=== PATIENT | male | born 1970 | race Caucasian/White ===

== ENCOUNTER 2018-02-03 08:19 | Day surgery (SDC) | payer MEDICARE, OTHER ==
[2018-01-31 10:13] VITALS: BMI 24.2
--- NOTE | 2018-02-02 15:26 | P.GSHP ---
History of Present Illness H&P Date: 02/03/18 CHIEF COMPLAINT: Inguinal hernia, left. HISTORY OF PRESENT ILLNESS: The patient is a 47-year-old male who presents with a history of swelling and pain along the left groin. He has had previous repair. He's noted increased swelling including pain of the area. Now he presents for repair of his inguinal hernia. PAST MEDICAL HISTORY: Please see list. PAST SURGICAL HISTORY: Please see list. MEDICATIONS: Please see list. ALLERGIES: Please see list. SOCIAL HISTORY: No illicit drug use FAMILY HISTORY: No reports of Crohn disease or ulcerative colitis. REVIEW OF ORGAN SYSTEMS: CONSTITUTIONAL: No reports of fevers or chills. No reports of weight loss despite prior attempts. GI: Denies any blood in stools or constipation. PHYSICAL EXAM: VITAL SIGNS: Stable GENERAL: Well-developed pleasant male in no acute distress. HEENT: No scleral icterus. Extraocular movements grossly intact. Moist buccal mucosa. NECK: Supple without lymphadenopathy. CHEST: Unlabored respirations. Equal bilateral excursions. CARDIOVASCULAR: Regular rate and rhythm. Distal 2+ pulses. ABDOMEN: Soft, nondistended. No peritoneal signs. Palpable defect of the left groin. MUSCULOSKELETAL: No clubbing, cyanosis, or edema. ASSESSMENT: 1. Inguinal hernia, left and symptomatic, recurrent PLAN: 1. Recommend proceeding with a robotic inguinal repair with mesh with possible bilateral approach. 2. Benefits and risks of surgical intervention was discussed including possibility of open technique. 3. DVT prophylaxis. 4. Antibiotic prophylaxis. Past Medical History Past Medical History: Hyperlipidemia, Osteoarthritis (OA), Sleep Apnea/CPAP/ BIPAP Additional Past Medical History / Comment(s): hx migraines, no cpap used- corrected surgically, umbilical and inguinal herna, History of Any Multi-Drug Resistant Organisms: None Reported Past Surgical History: Adenoidectomy, Cholecystectomy, Hernia Repair, Orthopedic Surgery, Tonsillectomy Additional Past Surgical History / Comment(s): surgery for sleep apnea, ACL x 3 left knee, ACL x 2 rt knee, inguinal hernia surgeries x 7, sinus/deviated septum surgery Past Anesthesia/Blood Transfusion Reactions: No Reported Reaction Smoking Status: Current every day smoker - Past Family History Mother Family Medical History: Cancer Medications and Allergies Home Medications Medication Instructions Recorded Confirmed Type Multivitamins, Thera [Multivitamin 1 tab PO DAILY 01/31/18 01/31/18 History (formulary)] Allergies Allergy/AdvReac Type Severity Reaction Status Date / Time aspirin Allergy Swelling Verified 01/31/18 10:05 of throat and SOB codeine Allergy Dyspnea, Verified 01/31/18 10:05 whole body swells pregabalin [From Lyrica] Allergy Rash/Hives Verified 01/31/18 10:05
[~2018-02-03 08:19] MED LIST: ACETAMINOPHEN IV (For NPO) 1,000 MG in EMPTY BAG 1 BAG IVPB ONE; DEXAMETHASONE SOD PHOSPHATE 10 MG/ML 1 ML VIAL IV ONE; HEPARIN SODIUM,PORCINE 5,000 UNIT/ML 1 ML VIAL SQ ONE; MIDAZOLAM 2 MG/2 ML VIAL IV PRN; MORPHINE SULF 5MG/10ML VL IV PRN; ONDANSETRON 4 MG/2 ML VIAL IVP ONE; ceFAZolin IN SWFI 2 GM/20 ML SYRINGE IVP ONE
[2018-02-03] MEDS: LACTATED RINGERS 1,000 ML IV SCH (08:56)
[2018-02-03] MEDS ORDERED: LIDOCAINE 1% INJ 10MG/ML (20 ML MDV) ONE (09:59)
[2018-02-03] MEDS ORDERED: fentaNYL (PF) 50 MCG/ML 2 ML AMP ONE (09:59)
[2018-02-03] MEDS ORDERED: GLYCOPYRROLATE 0.2 MG/ML 2 ML VIAL ONE (09:59)
[2018-02-03] MEDS ORDERED: MIDAZOLAM 2 MG/2 ML VIAL ONE (09:59)
[2018-02-03] MEDS ORDERED: PROPOFOL 10 MG/ML 20 ML VIAL IV ONE (09:59)
[2018-02-03] MEDS ORDERED: ROCURONIUM BROMIDE 10 MG/ML 10 ML VIAL IV ONE (09:59)
[2018-02-03] MEDS ORDERED: SUCCINYLCHOLINE CHLORIDE VIAL 200 MG/10 ML VIAL IV ONE (09:59)
[2018-02-03] MEDS ORDERED: MORPHINE SULFATE 10 MG/ML SYRINGE ONE (09:59)
[2018-02-03] MEDS ORDERED: NEOSTIGMINE 1 MG/ML 10 ML VIAL ONE (09:59)
[2018-02-03] MEDS ORDERED: BUPIVACAINE (PF) 0.25% 30 ML VIAL SQ ONE (10:20)
[2018-02-03 12:03] VITALS: TEMP 98.5
--- NOTE | 2018-02-03 12:07 | P.OP ---
Date of Procedure: 02/03/18 Description of Procedure: SURGEON: HERMANN SABA MD ROLLER BEARING INSPECTOR: 1. DENIA MONTOYA 2. CLAIRE SIFUENTES PREOPERATIVE DIAGNOSES: 1. Recurrent left inguinal hernia. 2. History of bilateral inguinal hernia repair. 3. Umbilical hernia 4. History of tobacco use 5. Left groin pain POSTOPERATIVE DIAGNOSES: 1. Recurrent left inguinal hernia, incarcerated, direct, 3 cm 2. History of bilateral inguinal hernia repair. 3. Umbilical hernia, initial, incarcerated, 2 cm 4. History of tobacco use 7. Incarcerated left inguinal lipoma. 8. Foreign body left groin 9. Left groin pain OPERATION: 1. Robotic-assisted da Dimas Xi laparoscopic recurrent incarcerated left inguinal hernia repair with mesh, 11.[address] 2. Robotic-assisted da Dimas Xi laparoscopic excision of foreign body, left inguinal canal, previous mesh 3. Robotic-assisted da Dimas Xi laparoscopic excision of incarcerated left inguinal lipoma. 4. Robotic-assisted da Dimas Xi laparoscopic repair of initial incarcerated umbilical hernia, 2 cm without mesh ANESTHESIA: General with local anesthetic ESTIMATED BLOOD LOSS: 5 mL. SPECIMENS REMOVED: 1. Incarcerated left inguinal lipoma. 2. Foreign body left groin 3. Incarcerated umbilical COMPLICATIONS: None. INDICATIONS: The patient is a 47-year-old gentleman who presents with history of left groin swelling. He has a personal history of previous bilateral inguinal hernia repairs. He also has history of umbilcal hernia. Now presents for definitive surgical intervention. Laparoscopic versus open and robotic approaches were discussed. Benefits and risks including bleeding, infection, injury to the vas deferens as well as sterility and chronic groin pain were reviewed. Placement of mesh was also described. Informed consent was obtained. DESCRIPTION: In the preoperative area, the patient was marked with indelible marker along the inguinal hernia. The patient was brought to the operating room and initially laid in supine position. The abdomen had been prepped and draped in standard sterile fashion. Ioban draping was also placed. Prior to incision, a timeout protocol was confirmed with surgical team regarding patient's name including procedures to be performed and location along the left groin. Initial positioning for the robotic assisted ports were selected whereby 20 cm superior to the target anatomy, 0 degree 5 mm laparoscopic trocar entry was performed at the left upper quadrant. The abdomen was insufflated to 15 mmHg which he had tolerated well. Diagnostic laparoscopy demonstrated direct left groin and no recurrence along the right side. Next, along the epigastrium, 12 mm extended length trocar was placed. An 8-mm robotic trocar was placed under direct visualization at the right upper quadrant. The 5 mm port was exchanged for an 8 mm trocar. All trocars were positioned between 10 to 12-cm apart from each other. The [employer] robot was primed, draped, prepared for docking in between the legs of the patient. I then went to the [employer] SI console. The assistant import manager was at bedside for exchange of the robot arms and equipment. No recurrent hernia was identified along the right groin. At the left groin, 3 cm direct inguinal hernia was identified. The hernia sac was evaginated whereby the peritoneum was scored using Endo scissors with cautery. Foreign body consistent with previous PerFix plug mesh was found and resected. Once completely reduced into the abdominal cavity, the peritoneal sac of the hernia was stripped and a lipoma of the left groin was reduced. The sac was resected and then passed off for further pathological analysis. The size of the hernia defect was 3 cm with intraoperative films obtained. Using a 2-0 VLOC, the peritoneal defect of the left inguinal hernia site was closed with running suture. The defect was found to be completely closed with complete reduction of the left nguinal hernia was confirmed. As an onlay, an 11.[address] mesh by [employer] was initially cut in half and entered into the abdominal cavity via the 12 mm trocar. The mesh was tacked to the pelvis using 2-0 VLOC x 9-inch length sutures. Attention was brought to the umbilicus where an incarcerated incisional hernia was identified also containing omentum. The incarcerated contents was reduced as the peritoneal fat was cleaned from the abdominal wall. Next, hemostasis was checked with cautery. The hernia defect of 2-cm was oversewn using #1 Stratafix with imbrication 3. A final endoscopic imaging was obtained. The robot was undocked from the patient's bedside. I then rescrubbed into the case. The peritoneal defect corresponding to the 12 mm port was inspected. The fascial defect was reapproximated using 0-Vicryl and a Issa Hari. Insufflation was released from the abdominal cavity and all instruments were removed from the abdominal cavity. The rest of incisions were reapproximated using 4-0 Monocryl in a running subcuticular fashion. Local anesthetic was placed along the incision including for a left groin block. Incisions were cleansed using dilute hydrogen peroxide. Dermabond was applied to the skin. At the end of the procedure, the needle, sponge and instrument counts had been verified correct by the nursing surgical services director. The patient had tolerated the procedure well and was taken to the postanesthesia care unit in stable condition. FINDINGS: 1. Recurrent left inguinal hernia, direct, Nyhus type IV, 3 cm 2. No recurrent hernia on the right groin 3. Incarcerated left inguinal lipoma 4. Removal of previous mesh left groin foreign body 5. Incarcerated initial umbilical hernia, 2cm, repair without mesh Plan - Discharge Summary New Discharge Prescriptions: No Action Multivitamins, Thera [Multivitamin (formulary)] 1 tab PO DAILY Discharge Medication List Multivitamins, Thera [Multivitamin (formulary)] 1 tab PO DAILY 01/31/18 [History ]
[2018-02-03] MEDS ORDERED: TAMSULOSIN 0.4 MG CAP.ER.24H PO STA (12:10)
[2018-02-03] MEDS: fentaNYL (PF) 50 MCG/ML 2 ML AMP IVP ONE ×2 (12:26→12:31)
[2018-02-03] MEDS ORDERED: MEPERIDINE 50 MG/ML SYRINGE IVP ONE ×2 (12:43→13:18)
[2018-02-03 13:43] VITALS: RESP 18
[2018-02-03] MEDS ORDERED: HYDROcodone/APAP 5-325MG 1 EACH TAB PO ONE (14:03)
[2018-02-03 14:42] VITALS: BP 148/80; PULSE 74
== END 2018-02-03 15:08 | disposition home or self-care (01) ==
LOC: OR 08:19
PROVIDERS: ATTEND Surgery Plastic and Reconstructive Surgery
DX: K40.31 Unilateral inguinal hernia, with obstruction, without gangrene, recurrent (principal); K42.0 Umbilical hernia with obstruction, without gangrene; D17.79 Benign lipomatous neoplasm of other sites; T85.848A Pain due to other internal prosthetic devices, implants and grafts, initial encounter; E78.5 Hyperlipidemia, unspecified; M19.90 Unspecified osteoarthritis, unspecified site; G47.33 Obstructive sleep apnea (adult) (pediatric); F17.200 Nicotine dependence, unspecified, uncomplicated; Z88.6 Allergy status to analgesic agent; Z88.5 Allergy status to narcotic agent; Z88.8 Allergy status to other drugs, medicaments and biological substances
CPT/HCPCS: 49651; 49653; C1781; J2250; J0330; J1644; J1100; J2710; J2175; J2270; J2405; J2001; J3010; J0131; J2704; J0690; 88302; 88304

== ENCOUNTER 2019-02-26 10:01 | Day surgery (SDC) | payer MEDICARE, OTHER ==
[2019-02-17 10:26] VITALS: BMI 24.6
--- NOTE | 2019-02-25 18:29 | P.GSHP ---
History of Present Illness H&P Date: 02/26/19 CHIEF COMPLAINT: Ventral hernia HISTORY OF PRESENT ILLNESS: The patient is a 48-year-old male who presents with a history of swelling and pain along the abdomen from a hernia. Now he presents for surgical intervention. PAST MEDICAL HISTORY: Please see list. PAST SURGICAL HISTORY: Please see list. MEDICATIONS: Please see list. ALLERGIES: Please see list. SOCIAL HISTORY: No illicit drug use FAMILY HISTORY: No reports of Crohn disease or ulcerative colitis. REVIEW OF ORGAN SYSTEMS: CONSTITUTIONAL: No reports of fevers or chills. No reports of weight loss despite prior attempts. GI: Denies any blood in stools or constipation. PHYSICAL EXAM: VITAL SIGNS: Stable GENERAL: Well-developed pleasant male in no acute distress. HEENT: No scleral icterus. Extraocular movements grossly intact. Moist buccal mucosa. NECK: Supple without lymphadenopathy. CHEST: Unlabored respirations. Equal bilateral excursions. CARDIOVASCULAR: Regular rate and rhythm. Distal 2+ pulses. ABDOMEN: Soft, nondistended. Palpable defect of the abdomen epigastrium. No peritoneal signs. MUSCULOSKELETAL: No clubbing, cyanosis, or edema. ASSESSMENT: 1. Ventral hernia PLAN: 1. Recommend proceeding with robotic ventral hernia repair with mesh. 2. Benefits and risks of surgical intervention was discussed including possibility of open technique. 3. DVT prophylaxis. 4. Antibiotic prophylaxis. Past Medical History Past Medical History: Hyperlipidemia, Osteoarthritis (OA), Sleep Apnea/CPAP/BIPAP Additional Past Medical History / Comment(s): hx migraines, no cpap used- corrected surgically, HERNIA History of Any Multi-Drug Resistant Organisms: None Reported Past Surgical History: Adenoidectomy, Cholecystectomy, Hernia Repair, Orthopedic Surgery, Tonsillectomy Additional Past Surgical History / Comment(s): surgery for sleep apnea, ACL x 3 left knee, ACL x 2 rt knee, inguinal hernia surgeries x 7, sinus/deviated septum surgery Past Anesthesia/Blood Transfusion Reactions: No Reported Reaction Smoking Status: Current every day smoker - Past Family History Mother Family Medical History: Cancer Medications and Allergies Home Medications Medication Instructions Recorded Confirmed Type No Known Home Medications 02/17/19 02/17/19 History Allergies Allergy/AdvReac Type Severity Reaction Status Date / Time aspirin Allergy Swelling Verified 02/17/19 10:19 of throat/SOB pregabalin [From Lyrica] Allergy Rash/Hives Verified 02/17/19 10:19
[~2019-02-26 10:01] MED LIST changes: -ACETAMINOPHEN IV (For NPO) 1,000 MG in EMPTY BAG 1 BAG IVPB ONE; +HYDROmorphone 0.5 MG/0.5 ML SYRINGE IVP PRN; +LACTATED RINGERS 1,000 ML IV SCH; +LIDOCAINE 1% 20 ML VIAL (10MG/ML) FOR IV START INTRADERMA PRN; +MIDAZOLAM (PF) 2 MG/2 ML VIAL IV PRN; -MIDAZOLAM 2 MG/2 ML VIAL IV PRN; -MORPHINE SULF 5MG/10ML VL IV PRN; +SCOPOLAMINE 1.5MG/72HR PATCH TRANSDERM ONE
[2019-02-26] MEDS ORDERED: MIDAZOLAM (PF) 2 MG/2 ML VIAL IV ONE (10:55)
--- NOTE | 2019-02-26 11:18 | P.ONQ ---
Anesthesiology Proc Note - PNB - Peripheral Nerve Block Performed Bilateral Transversus Abdominis Single Time Out Performed: Yes (1058) Procedure Start Time: 10:58 Procedure Stop Time: 11:05 Indication: Acute Post-Operative Pain, Dx/Pain Location (Abdominal Pain), Requested by physician Sedation Type: Sedate with meaningful contact maintained Preparation: Sterile Prep Position: Supine Catheter: None Needle Types: On-Q Needle Size: 100mm (4") Needle Gauge: 21 Technique: Ultrasound Injectate: Other (see comment) (10ml 0.25% ropivacaine with 10ml 2% lidocaine with 1:200,000 epi and 4mg dexamethasone at each side) Blood Aspirated: No Pain Paresthesia on Injection Noted: No Resistance on Injection: Normal Events: Uneventful and Well Tolerated
[2019-02-26] MEDS ORDERED: ALBUTEROL INHALER 60 PUFF/8 GM INHALER INHALATION ONE (13:01)
[2019-02-26] MEDS ORDERED: ROPIVACAINE 5 MG/ML 30 ML VIAL ONE (13:01)
[2019-02-26] MEDS ORDERED: MIDAZOLAM 2 MG/2 ML VIAL ONE (13:01)
[2019-02-26] MEDS ORDERED: fentaNYL (PF) 50 MCG/ML 2 ML AMP ONE (13:01)
[2019-02-26] MEDS ORDERED: GLYCOPYRROLATE 0.2 MG/ML 2 ML VIAL ONE (13:01)
[2019-02-26] MEDS ORDERED: LIDOCAINE 1% INJ 10MG/ML (20 ML MDV) ONE (13:01)
[2019-02-26] MEDS ORDERED: LIDOCAINE 2%-EPI 1:100,000 20 ML VIAL ONE (13:01)
[2019-02-26] MEDS ORDERED: NEOSTIGMINE 1 MG/ML 10 ML VIAL ONE (13:01)
[2019-02-26] MEDS ORDERED: PROPOFOL 10 MG/ML 20 ML VIAL IV ONE (13:01)
[2019-02-26] MEDS ORDERED: ePHEDrine SULFATE/0.9% NACL/PF 50 MG/5 ML SYRINGE IV ONE (13:01)
[2019-02-26] MEDS ORDERED: ROCURONIUM BROMIDE 10 MG/ML 10 ML VIAL IV ONE (13:01)
[2019-02-26] MEDS ORDERED: LACTATED RINGERS 1,000 ML IV ONE ×2 (13:09→13:35)
[2019-02-26] MEDS ORDERED: BUPIVACAINE (PF) 0.5% 30 ML VIAL SQ ONE (13:45)
[2019-02-26] MEDS ORDERED: BUPIVACAINE (PF) 0.75% 10 ML VIAL SQ ONE (13:49)
[2019-02-26 15:02] VITALS: TEMP 98.3
--- NOTE | 2019-02-26 15:12 | P.OP ---
Date of Procedure: 02/26/19 Description of Procedure: SURGEON: HERMANN SABA MD PREOPERATIVE DIAGNOSES: 1. Incisional epigastric ventral hernia 2. History of multiple abdominal wall surgeries 3. Tobacco use disorder 4. Hyperlipidemia 5. Obstructive sleep apnea POSTOPERATIVE DIAGNOSES: 1. Incarcerated initial epigastric incisional hernia, 3 cm 2. History of multiple abdominal wall surgeries 3. Tobacco use disorder 4. Hyperlipidemia 5. Obstructive sleep apnea OPERATION: 1. Robotic-assisted da Dimas Xi laparoscopic repair of initial incarcerated incisional hernia 3-cm with mesh, ventralight ST mesh 11.4 cm ANESTHESIA: General with local ESTIMATED BLOOD LOSS: 5 mL. SPECIMENS: Incarcerated incisional hernia sac, epigastric COMPLICATIONS: None. INDICATIONS: The patient is a 48-year-old male who presents with initial incisional epigastric ventral hernia. Surgical intervention with laparoscopic versus robotic and open techniques were reviewed. Placement of mesh was also reviewed. Benefits and risks were thoroughly described. Informed consent was obtained. DESCRIPTION OF PROCEDURE: The patient was brought into the operating room and laid in supine position. After general induction, the abdomen had been prepped and draped in standard sterile fashion. Ioban draping was also placed. Prior to incision, a timeout protocol was confirmed with surgical team regarding the patient's name including procedures to be performed. The robot was primed prior to the procedure. A field block using local anesthetic was placed along hernia site including the proposed port sites. Initial incision was made with an #11 blade along the left upper quadrant. A 0 degree 5 mm laparoscopic trocar entry was performed and insufflated. An 8 mm port was placed along the right upper quadrant and another at the epigastrium under direct localization. The 5- mm port was exchanged for an 8 mm robotic port. Placements of the ports were 15 cm from the target anatomy and 10 cm apart. The [employer] robot was previously primed, prepped and draped then docked along the right side of the patient. I then sat at the robot [email or web address] console where working arms of the robot including Bovie cautery connected to robotic scissors, vessel sealer, needle fork truck driver, and graspers placed by the licensed loan officer assistant. Diagnostic laparoscopy demonstrated defect along the epigastrium and 2 sites approximately 3 cm in size combined just distal to the falciform ligament. The incarcerated contents was reduced as the peritoneal fat was cleaned from the abdominal wall. Next, hemostasis was checked with cautery. The hernia defect was oversewn using #1 Stratafix with fascial imbrication x 3. Next, ventralight ST mesh 11.4 cm was placed with the rough side towards the abdominal wall along the length of the midline. 2-0 VLOC 9 inch sutures were used to fixate the mesh. Specimen was removed via the left upper quadrant incision A final endoscopic imaging was obtained. All instruments and pneumoperitoneum were evacuated from the abdominal cavity. The da Dimas Xi robot was undocked from the patient. I re-scrubbed into the case for closure of incisions. The incisions were reapproximated using 4-0 Monocryl in an interrupted subcuticular fashion. Liquid glue was applied to the skin after cleansing the skin with normal saline and dilute hydrogen peroxide. An abdominal binder was placed. At the end of the procedure, needle, sponge, and instrument count had been verified correct by surgical elastic knitter. The patient was taken to the postanesthesia care unit in stable condition. FINDINGS: 1. Initial incarcerated epigastric incisional hernia, 3 cm
[2019-02-26 15:56] VITALS: RESP 18
[2019-02-26 16:29] VITALS: BP 128/78; PULSE 78
== END 2019-02-26 16:29 | disposition home or self-care (01) ==
LOC: OR 10:01
PROVIDERS: ATTEND Surgery Plastic and Reconstructive Surgery
DX: K43.0 Incisional hernia with obstruction, without gangrene (principal); E78.5 Hyperlipidemia, unspecified; G47.33 Obstructive sleep apnea (adult) (pediatric); M19.90 Unspecified osteoarthritis, unspecified site; F17.210 Nicotine dependence, cigarettes, uncomplicated; Z80.9 Family history of malignant neoplasm, unspecified; Z79.899 Other long term (current) drug therapy; Z88.6 Allergy status to analgesic agent; Z88.8 Allergy status to other drugs, medicaments and biological substances; Z88.5 Allergy status to narcotic agent
CPT/HCPCS: 49655; S2900; 64488; 88302

== ENCOUNTER → 2022-08-16 | Day surgery (SDC) | payer MEDICARE, OTHER ==
[2022-08-15 08:42] VITALS: BMI 27.1
[~2022-08-16] MED LIST changes: -DEXAMETHASONE SOD PHOSPHATE 10 MG/ML 1 ML VIAL IV ONE; -HEPARIN SODIUM,PORCINE 5,000 UNIT/ML 1 ML VIAL SQ ONE; -HYDROmorphone 0.5 MG/0.5 ML SYRINGE IVP PRN; +LACTATED RINGERS 1,000 ML IV ONE; -LIDOCAINE 1% 20 ML VIAL (10MG/ML) FOR IV START INTRADERMA PRN; +LIDOCAINE 2% INJ 20 MG/ML (2 ML VIAL) ONE; -MIDAZOLAM (PF) 2 MG/2 ML VIAL IV PRN; -ONDANSETRON 4 MG/2 ML VIAL IVP ONE; +PROPOFOL 10 MG/ML 20 ML VIAL IV ONE; -SCOPOLAMINE 1.5MG/72HR PATCH TRANSDERM ONE; -ceFAZolin IN SWFI 2 GM/20 ML SYRINGE IVP ONE
--- NOTE | 2022-08-16 07:39 | P.GSHP ---
History of Present Illness H&P Date: 08/16/22 CHIEF COMPLAINT: Colon screen and anal fistula HISTORY OF PRESENT ILLNESS: The patient is a 52-year-old male who presents for colon screen and anal fistula. Lower endoscopy was offered for further evaluation and management. PAST MEDICAL HISTORY: Please see list. PAST SURGICAL HISTORY: Please see list. MEDICATIONS: Please see list. ALLERGIES: Please see list. SOCIAL HISTORY: No illicit drug use FAMILY HISTORY: No reports of Crohn disease or ulcerative colitis. REVIEW OF ORGAN SYSTEMS: CONSTITUTIONAL: No reports of fevers or chills. PHYSICAL EXAM: VITAL SIGNS: Stable GENERAL: Well-developed pleasant in no acute distress. HEENT: No scleral icterus. Extraocular movements grossly intact. Moist buccal mucosa. NECK: Supple without lymphadenopathy. CHEST: Unlabored respirations. Equal bilateral excursions. CARDIOVASCULAR: Regular rate and rhythm. Distal 2+ pulses. ABDOMEN: Soft, nontender, nondistended. MUSCULOSKELETAL: No clubbing, cyanosis, or edema. ASSESSMENT: 1. Colon screen. 2. Anal fistula PLAN: 1. Recommend proceeding with a lower endoscopy Past Medical History Past Medical History: Hyperlipidemia, Osteoarthritis (OA), Sleep Apnea/CPAP/BIPAP Additional Past Medical History / Comment(s): hx migraines, no cpap used- corrected surgically, History of Any Multi-Drug Resistant Organisms: None Reported Past Surgical History: Adenoidectomy, Cholecystectomy, Hernia Repair, Orthopedic Surgery, Tonsillectomy Additional Past Surgical History / Comment(s): surgery for sleep apnea, ACL x 3 left knee, ACL x 2 rt knee, inguinal hernia surgeries x 12, sinus/deviated septum surgery, UMBILICAL HERNIA REPAIR, Past Anesthesia/Blood Transfusion Reactions: No Reported Reaction Smoking Status: Current some day smoker - Past Family History Mother Family Medical History: Cancer Medications and Allergies Home Medications Medication Instructions Recorded Confirmed Type No Known Home Medications 08/15/22 08/15/22 History Allergies Allergy/AdvReac Type Severity Reaction Status Date / Time aspirin Allergy Swelling Verified 08/15/22 08:24 of throat/SOB codeine Allergy Itching Verified 08/15/22 08:24 pregabalin [From Lyrica] Allergy Rash/Hives Verified 08/15/22 08:24 sulfamethoxazole AdvReac Abdominal Verified 08/15/22 08:24 [From Bactrim] Pain trimethoprim [From Bactrim] AdvReac Abdominal Verified 08/15/22 08:24 Pain
[2022-08-16 09:00] VITALS: RESP 16; TEMP 97.6
--- NOTE | 2022-08-16 09:46 | P.PCN ---
Date of Procedure: 08/16/22 Description of Procedure: PREOPERATIVE DIAGNOSIS: Colonoscopy screening POSTOPERATIVE DIAGNOSIS: Tubular adenoma rectum Tubular adenoma sigmoid colon Sigmoid diverticulosis OPERATION: Colonoscopy to the ileocecal valve and appendiceal orifice, cecum Colonoscopy with cold forceps biopsy SURGEON: Muna Duggan MD. ANESTHESIA: MAC. INDICATIONS: The patient is an 52-year-old male who presents colonoscopy screening. Benefits and risks were described and informed consent was obtained. DESCRIPTION OF PROCEDURE: The patient had undergone Miralax prep. The patient had been brought into the operating room and laid in the left lateral decubitus position. After adequate intravenous sedation, the rectum was examined with 2% lidocaine jelly. The prostate was unremarkable. External hemorrhoids were encountered. The rectal tone was within normal limits. No lesions were palpated in the rectal vault. An Olympus colonoscope was advanced until the cecum, ileocecal valve and appendiceal orifice were clearly viewed. The prep was excellent. Sigmoid diverticulosis was encountered. Colonic polyps were found and removed. No evidence of focal colitis was found. Retroflexion of the scope demonstrated grade 2 internal hemorrhoids without active bleeding or inflammation. The colon was desufflated. The patient had tolerated the procedure well. Withdrawal time was over 6 minutes. FINDINGS: Aronchick preparation quality scale 1 (1-5) Internal hemorrhoids, grade 2 External hemorrhoids, grade 2. No arteriovenous malformations. Sigmoid diverticulosis Removal of 9 polyps: - Cold forceps biopsy at 10 cm from the anal verge x 8, 4 mm polyp, rectum - Cold forceps biopsy at 20 cm from the anal verge, 5 mm polyp, sigmoid colon No focal colitis. RECOMMENDATIONS: Repeat colonoscopy year2022 Plan - Discharge Summary Discharge Rx Participant: No New Discharge Prescriptions: Continue No Known Home Medications Discharge Medication List No Known Home Medications 08/15/22 [History] Follow up Appointment(s)/Referral(s): Muna Duggan MD [STAFF PHYSICIAN] - 08/28/22 Patient Instructions/Handouts: Diverticulosis Diet (GEN), Diverticulosis (ED), Colorectal Polyps (GEN) Activity/Diet/Wound Care/Special Instructions: Repeat colonoscopy year2022 Discharge Disposition: HOME SELF-CARE
[2022-08-16 10:42] VITALS: BP 109/63; PULSE 72
== END | disposition home or self-care (01) ==
LOC: ORWHC2ENDO 08:39
PROVIDERS: ATTEND Surgery Plastic and Reconstructive Surgery
DX: Z12.11 Encounter for screening for malignant neoplasm of colon (principal); D12.5 Benign neoplasm of sigmoid colon; D12.8 Benign neoplasm of rectum; K64.4 Residual hemorrhoidal skin tags; K64.1 Second degree hemorrhoids; K57.30 Diverticulosis of large intestine without perforation or abscess without bleeding; K60.3 Anal fistula; E78.5 Hyperlipidemia, unspecified; M19.90 Unspecified osteoarthritis, unspecified site; G47.30 Sleep apnea, unspecified; Z88.1 Allergy status to other antibiotic agents; Z88.2 Allergy status to sulfonamides; Z90.49 Acquired absence of other specified parts of digestive tract; F17.210 Nicotine dependence, cigarettes, uncomplicated; G43.909 Migraine, unspecified, not intractable, without status migrainosus; Z79.890 Hormone replacement therapy; Z79.82 Long term (current) use of aspirin; Z79.899 Other long term (current) drug therapy
CPT/HCPCS: 88305; 45380; J2704; J2001